=== PATIENT | female | born 1960 | race Caucasian/White ===

== ENCOUNTER → 2023-10-06 16:09 | Outpatient (REF) | payer OTHER, SELFPAY | LOC: WDC 16:09 | PROVIDERS: ATTENDING PHYSICIAN Obstetrics & Gynecology | DX: Z12.31 Encounter for screening mammogram for malignant neoplasm of breast (principal) | CPT/HCPCS: 77063; 77067 ==

== ENCOUNTER → 2024-10-08 17:12 | Outpatient (REF) | payer MEDICARE, OTHER, SELFPAY | LOC: WDC 17:12 | PROVIDERS: ATTENDING PHYSICIAN Obstetrics & Gynecology; FAMILY PHYSICIAN Internal Medicine | DX: Z12.31 Encounter for screening mammogram for malignant neoplasm of breast (principal) | CPT/HCPCS: 77063; 77067 ==